=== PATIENT | female | born 1945 ===

== ENCOUNTER → 2020-09-21 | Outpatient (CLI) | payer MEDICARE, BC ==
[~2020-09-21] MED LIST: ALEN70 PO; ALLEGRA ALLERG180 MG PO; AMLO5 PO; AMOCLA875 PO; ASPI81CH PO; ASPIR 8181 M1 PO; Acetaminophen325 M1 PO; Amlodipine Besyl5 MG PO; CODACE30 PO; Diflucan150 MG PO; FEXO60 PO; FLUC150A PO; Flonase 0.05% N16 GM; Flovent Diskus50 MCG IH; MELATONIN5 M1 PO; MELO7.5 PO; METO25ER PO; MONT10T PO; OMEP20ER PO; PIRO20 PO; POTA10T PO; RXCODACET PO; SIMV10 PO; THERA-D2000 UNIT PO; TRIHYD PO; VALA500 PO; VITORIN; ZOCOR20 MG PO; ZOLP10 PO; ZOLP5 PO; [UNRECOGNIZED DRUG - OTHER]
== END | disposition home or self-care (01) ==
LOC: LAB 14:34 → LAB SHORT 14:34
DX: C44.619 Basal cell carcinoma of skin of left upper limb, including shoulder (principal)
CPT/HCPCS: 88305

== ENCOUNTER 2020-10-25 12:50 | Emergency (ER) | payer MEDICARE, BC ==
[~2020-10-25] VITALS: Ht 154.9 cm; Wt 55.3 kg
[~2020-10-25 12:50] MED LIST changes: -ASPIR 8181 M1 PO; -Acetaminophen325 M1 PO; -Amlodipine Besyl5 MG PO; -Diflucan150 MG PO; -Flonase 0.05% N16 GM; -MELATONIN5 M1 PO; -METO25ER PO; -POTA10T PO; -THERA-D2000 UNIT PO; -ZOCOR20 MG PO; -ZOLP5 PO
[2020-10-25 14:09] LABS: BASOPHILS ABSOLUTE AUTO 0.04 K/mm3 (0.00-0.23); BASOPHILS PERCENT AUTO 1 % (0-2); EOSINOPHILS ABSOLUTE AUTO 0.01 K/mm3 (0.00-0.68); EOSINOPHILS PERCENT AUTO 0 % (0-6); Hematocrit 47.6 % (33.0-51.0); IMMATURE GRAN ABSOLUTE AUTO 0.02 K/mm3 (0.00-0.10); IMMATURE GRAN PERCENT AUTO 0 % (0-1); LYMPHOCYTES ABSOLUTE AUTO 1.45 K/mm3 (0.84-5.20); LYMPHOCYTES PERCENT AUTO 16 % (21-46); MONOCYTES ABSOLUTE AUTO 0.55 K/mm3 (0.16-1.47); MONOCYTES PERCENT AUTO 6 % (4-13); Mean Corpuscular HGB 30.5 pg (26.0-34.0); Mean Corpuscular HGB Conc 33.6 g/dL (31.5-36.5); Mean Corpuscular Volume 91 fL (80-100); Mean Platelet Volume 9.8 fL (9.1-12.4); NEUTROPHILS ABSOLUTE AUTO 6.76 K/mm3 (1.96-9.15); NEUTROPHILS PERCENT AUTO 77 % (41-73); Platelet Count 292 K/mm3 (150-400); RDW Coefficient Variation 12.8 % (11.7-14.2); RDW Standard Deviation 42.6 fL (35.1-46.3); Red Blood Cell Count 5.24 M/mm3 (3.80-5.20); White Blood Cell Count 8.83 K/mm3 (4.00-11.30)
[2020-10-25 14:35] LABS: Alanine Aminotransfer (ALT/SGP 31 U/L (12-78); Albumin, Blood 4.7 g/dL (3.4-5.0); Albumin/Globulin Ratio 1.2 (0.8-1.8); Alk Phos 93 U/L (50-136); Anion Gap 7 mmol/L (6-16); Aspartate Aminotrans (AST/SGOT 18 U/L (12-37); Bilirubin, Total 0.5 mg/dL (0.1-1.0); Blood Urea Nitrogen 14 mg/dL (8-24); Bun/Creatinine Ratio 17.6 (12.0-20.0); CO2, Blood 28 mmol/L (21-32); Calcium, Blood 9.5 mg/dL (8.5-10.1); Chloride, Blood 106 mmol/L (98-108); Creatinine, Blood 0.79 mg/dL (0.40-1.00); Globulin, Blood 3.8 g/dL (2.2-4.0); Glomerular Filtration Rate >60 (60-); Glucose, Blood 109 mg/dL (70-99); Potassium, Blood 3.3 mmol/L (3.5-5.5); Sodium, Blood 141 mmol/L (136-145); Total Protein, Blood 8.5 g/dL (6.4-8.2); Troponin I <0.015 ng/mL (0.000-0.040)
== END 2020-10-25 14:58 | disposition left against medical advice (07) ==
LOC: ER 12:50
PROVIDERS: Physician Assistant
DX: R11.0 Nausea (principal); R53.1 Weakness; Z53.21 Procedure and treatment not carried out due to patient leaving prior to being seen by health care provider
CPT/HCPCS: 36415; 71046; 80053; 84484; 85025; 93005; 93010; 99285-25

== ENCOUNTER 2020-12-24 07:18 | Emergency (ER) | payer MEDICARE, BC ==
[~2020-12-24] VITALS: Ht 160 cm; Wt 68.0 kg
[2020-12-24] MEDS ORDERED: Acetaminophen325 M1 PO (08:04)
[2020-12-24] MEDS ORDERED: Amlodipine Besyl5 MG PO (08:05)
[2020-12-24] MEDS ORDERED: ALLEGRA ALLERG180 MG PO (08:06)
[2020-12-24] MEDS ORDERED: ASPIR 8181 M1 PO (08:06)
[2020-12-24] MEDS ORDERED: THERA-D2000 UNIT PO (08:06)
[2020-12-24] MEDS ORDERED: MELATONIN5 M1 PO (08:07)
[2020-12-24] MEDS ORDERED: MELO7.5 PO (08:07)
[2020-12-24] MEDS ORDERED: Flonase 0.05% N16 GM (08:07)
[2020-12-24] MEDS ORDERED: METO25ER PO (08:08)
[2020-12-24] MEDS ORDERED: OMEP20ER PO (08:08)
[2020-12-24] MEDS ORDERED: MONT10T PO (08:08)
[2020-12-24] MEDS ORDERED: POTA10T PO (08:09)
[2020-12-24] MEDS ORDERED: ZOCOR20 MG PO ×2 (08:09)
[2020-12-24] MEDS ORDERED: ZOLP5 PO (08:10)
[2020-12-24] MEDS ORDERED: VALA500 PO (08:10)
[2020-12-24] MEDS ORDERED: Diflucan150 MG PO ×2 (08:13→08:15)
[2020-12-24] MEDS ORDERED: AMOCLA875 PO ×2 (08:13→08:15)
== END 2020-12-24 08:41 | disposition home or self-care (01) ==
LOC: ER 07:18
DX: S81.051A Open bite, right knee, initial encounter (principal); Z88.8 Allergy status to other drugs, medicaments and biological substances; Z79.899 Other long term (current) drug therapy; W54.0XXA Bitten by dog, initial encounter
CPT/HCPCS: 99283

== ENCOUNTER → 2022-06-07 | Outpatient (CLI) | payer MEDICARE, BC ==
[~2022-06-07] MED LIST changes: +ASPIR 8181 M1 PO; +Acetaminophen325 M1 PO; +Amlodipine Besyl5 MG PO; +Diflucan150 MG PO; +Flonase 0.05% N16 GM; +MELATONIN5 M1 PO; +METO25ER PO; +POTA10T PO; +THERA-D2000 UNIT PO; +ZOCOR20 MG PO; +ZOLP5 PO
== END ==
LOC: LAB SHORT 12:29 → PLD 12:29
DX: L57.0 Actinic keratosis (principal)
CPT/HCPCS: 88305